=== PATIENT | male | born 1990 | race Caucasian/White ===

== ENCOUNTER 2023-12-03 08:50 | Observation (INO) ==
--- NOTE | 2023-12-02 12:35 | Anesthesiology Consultation ---
Date of Service December 02, 2023 Assessment & Plan (1) Encounter for pre-operative examination: Chart Review Chart Review: Acceptable Risk for Surgery and Patient NOT seen in Pre Admission Testing Infectious Disease screening: Per PAT nursing assessment on 12/02/23, No known infectious disease contacts in past 10 days or current infectious disease symptoms. No recent travel outside the country. *Per RN phone interview 12/02/23, pt states that earlier in the day on 12/02/23, he was lying on the couch about 1 hour after waking up and he experienced '2-3 seconds of heart racing, felt short of breath at that time. patient took long deep breaths and it quit. no other symptoms.' Patient then went to pre op appointment with Dr Sandy this AM, vitals were checked and were normal. no other issues at this time. Pt denies any previous similar sx. Consults Requested none ASA ASA1 Proposed Anesthesia Anesthesia Type: General Regional Regional Laterality: Right Site: Popliteal Risk / Benefits Reviewed With: PT / POA / Parent / Guardian, Accepts Plan and Informed Consent Obtained History Surgery Operation Date: 12/03/23 10:40 Proposed Procedures p Right Achilles Tendon Repair - Timbo Ashford MD Height/Weight Height: 6 ft Weight: 81.647 kg Allergies Allergy/AdvReac Type Severity Reaction Status Date / Time bee venom protein (honey bee) Allergy Severe Anaphylaxis Verified 12/03/23 09:16 Medications Home Medications Medication Instructions Recorded Confirmed Last Taken ascorbic acid (vitamin C) 500 mg 500 mg PO 3XWK 12/02/23 12/03/23 12/01/23 08:00 tablet (Vitamin C) epinephrine 0.3 mg/0.3 mL 0.3 mg IM Q4H PRN Anaphylaxis 12/02/23 12/03/23 Unknown injection, auto-injector Active Medications Generic Name Dose Route Start Last Admin Trade Name Freq PRN Reason Stop Dose Admin Lactated Ringer's 1,000 mls @ 15 mls/hr 12/03/23 06:00 12/03/23 09:32 Lr IV 12/04/23 05:59 15 mls/hr .Q24H LIDYA Administration Lactated Ringer's 1,000 mls @ 15 mls/hr 12/03/23 06:00 12/03/23 09:33 Lr IV 12/04/23 05:59 Not Given .Q24H LIDYA NPO Date Last Intake of Fluids: 12/03/23 Time Last Intake of Fluids: 00:00 Date Last Intake of Solids: 12/03/23 Time Last Intake of Solids: 00:00 Past Medical History Medical History Allergy to bee sting History of COVID-19 2020 -> home test positive, cough-fever. resolved. No known health problems Exercise / Class Metabolic Activity 1 > 8 Run/Swim/Ski/Tennis Past Family History Family History Father Mesothelioma, Onset Age: 65 Other No family history of adverse response to anesthesia Past Surgical History Surgical History H/O wisdom tooth extraction sedation Past Anesthesia History No Hx of Anesthesia Complications and No Family Hx of Anesthesia Complications History of PONV No Hx of PONV and No Hx of Motion Sickness Social History Smoking Status: Never smoker Do You Dip or Chew Tobacco: No Hx Alcohol Use: Yes alcohol intake frequency: a few times a month Hx Substance Use: No substance use type: does not use Physical Exam Vital Signs Last Vital Signs Temp 97.9 F 12/03/23 09:18 Pulse 56 L 12/03/23 09:18 Resp 20 12/03/23 09:18 BP 138/85 12/03/23 09:18 Pulse Ox 99 12/03/23 09:18 O2 Del Method Room Air 12/03/23 09:18 ENMT Mouth: no dentition abnormality Thyromental Distance: > or= 3.5 Finger Breadths Mallampati Class: II Neck normal visual inspection Respiratory normal respiratory effort Auscultation: lungs clear to auscultation bilaterally Cardiovascular Rate/Rhythm: regular rate and regular rhythm
--- NOTE | 2023-12-03 06:26 | History & Physical Bridge Note ---
Date of Service December 03, 2023 History & Physical Bridge Note I have examined the patient, reviewed the History & Physical and in the interval since the performance of the History & Physical I have noted the following changes of clinical significance: consent and site verified.no changes noted
[~2023-12-03 08:50] MED LIST: ROPIVACAINE 0.5% 5 MG/ML 30 ML VIAL ONE; cefTRIAXone SODIUM 2,000 MG/50 ML BAG IV ONE
[2023-12-03] MEDS: LR 15ML/HR IV SCH (09:32)
[2023-12-03] MEDS: LACTATED RINGER'S 1,000 ML IV SCH (09:33)
[2023-12-03] MEDS ORDERED: MIDAZOLAM HCL 1 MG/ML 2ML VIAL ONE (09:44)
[2023-12-03] MEDS ORDERED: DEXAMETHASONE SOD INJ 4 MG/ML VIAL ONE (09:44)
[2023-12-03] MEDS ORDERED: PROPOFOL IV EMULSION 10 MG/ML 20 ML VIAL IV ONE (09:44)
[2023-12-03] MEDS ORDERED: LIDOCAINE 2% 2 ML VIAL/AMP(20MG/ML) INFIL ONE (09:44)
[2023-12-03] MEDS ORDERED: ONDANSETRON INJ 2 MG/ML 2 ML VIAL ONE (09:44)
[2023-12-03] MEDS ORDERED: ROCURONIUM BROMIDE 10 MG/ML 5 ML VIAL IV ONE ×5 (09:45)
[2023-12-03] MEDS ORDERED: fentaNYL citrate PF 100 MCG/2 ML VIAL ONE ×2 (09:45→11:25)
[2023-12-03] MEDS ORDERED: ePHEDrine sulfate 50 MG/ML AMP IV PRN (10:22)
[2023-12-03] MEDS ORDERED: ATROPINE SULFATE 0.1 MG/ML 10ML SYR IV PRN (10:22)
[2023-12-03] MEDS ORDERED: ONDANSETRON INJ 2 MG/ML 2 ML VIAL IV PRN (10:22)
[2023-12-03] MEDS: ceFAZolin 2000MG 2,000 MG/15 ML SYR IV SCH (11:05)
[2023-12-03] MEDS ORDERED: KETOROLAC 30 MG/ML VIAL ONE (11:19)
[2023-12-03] MEDS: BUPIVACAINE 0.5 % 5 MG/1 ML MPF 30ML VIAL ONE (11:33)
[2023-12-03] MEDS ORDERED: SUGAMMADEX SODIUM 200 MG/2 ML VIAL IV ONE (11:47)
--- NOTE | 2023-12-03 12:12 | Post Operative Brief Note ---
Immediate Post Op Note Date of Surgery December 03, 2023 Pre & Post Diagnosis Operation Date: 12/03/23 10:40 Pre-Op Diagnosis: Right Achilles Tendon Rupture Post-Op Diagnosis: Right Achilles Tendon Rupture I identified the patient and participated in the time-out.: Yes Procedure Operation Date: 12/03/23 10:40 Actual Procedures p Right Achilles Tendon Repair(Right) - Timbo Ashford MD Surgeon Timbo Ashford MD Spray Booth Operator SUDEEP/Steve Estimated Blood Loss 0 Findings Consistent with Post-Op Diagnosis Complete rupture with intact plantaris Fluids See anesthesia report
--- NOTE | 2023-12-03 12:16 | Operative Report ---
Post Operative Report Pre & Post Diagnosis Operation Date: 12/03/23 10:40 Pre-Op Diagnosis: Right Achilles Tendon Rupture Post-Op Diagnosis: Right Achilles Tendon Rupture I identified the patient and participated in the time-out.: Yes Procedure Operation Date: 12/03/23 10:40 Actual Procedures p Right Achilles Tendon Repair(Right) - Timbo Ashford MD Surgeon Timbo Ashford MD Automatic Engraver SUDEEP/Steve Estimated Blood Loss 0 Findings Consistent with Post-Op Diagnosis Complete rupture with intact plantaris interstitial lengthening of tendon Specimens None Drains None Complications None Indications Complete rupture young individual went over options flexes potential for recovery better with surgery done without surgery risk and consequences identified Description of Procedure After the patient was appropriate notified site verified consent verified antibiotics confirmed to be given he was carefully placed in the prone position tourniquet placed on his thigh and the right lower extremity prepped and draped use routine fashion. There was about a centimeter and a half defect noted. Once the tourniquet was inflated total tourniquet time was 33 minutes. A posterior medial incision was made. Full-thickness flaps raised peritenon open and preserved. Tendon defect identified plantaris intact identified. The plantaris was dissected proximally and then released later used for Pulvertaft weave. The tendon was then trimmed appropriately for the interstitial lengthening and then the tendon repaired with #2 Vicryl with 3 sutures of this. This was done with a baseball stitch and then a box stitch with some interlocking. This allowed the tendon to be repaired end and with no major bulk. Once this was done the parent peritenon was then closed over the top of the tendon repair with a 4-0 Vicryl and tubularized things very nicely. Wound was then irrigated 1 final time and then closed with 2-0 plain for the subcutaneous layer and 3-0 nylon horizontal mattress for skin Dermabond was applied Xeroform light dressing and an anterior shell splint. EBL was 0 cc crystalloid per anesthesia DVT prophylaxis with Eliquis for 1 week then followed by aspirin. He will be nonweightbearing for the next 2 weeks. He will be kept immobile for the next 2 weeks. I attest to the content of the Intraoperative Record and any orders documented therein. Any exceptions are noted below.
[2023-12-03] MEDS ORDERED: GLYCOPYRROLATE 0.2 MG/ML VIAL ONE (12:21)
--- NOTE | 2023-12-03 12:22 | Operative Report ---
Post Operative Report Pre & Post Diagnosis Operation Date: 12/03/23 10:40 Pre-Op Diagnosis: Right Achilles Tendon Rupture Post-Op Diagnosis: Right Achilles Tendon Rupture I identified the patient and participated in the time-out.: Yes Procedure Operation Date: 12/03/23 10:40 Actual Procedures p Right Achilles Tendon Repair(Right) - Timbo Ashford MD Surgeon DAPHNIE Ashford MD Molding Machine Operator Helper SUDEEP/Steve MENEZES Estimated Blood Loss 0 Findings Consistent with Post-Op Diagnosis see operative report Specimens none Drains none Complications none Disposition Accompanied Patient To Recovery: Yes Indications This 33 year old male presented to the office complaints of right ankle weakness and discomfort after injuring himself while playing Frisbee. He elected to proceed with surgical intervention after being educated about potential risks and outcomes. Preoperative imaging was obtained. Description of Procedure The patient was administered a regional block and then taken to the operating room where he was given general anesthesia. He was prepped and draped in the usual sterile fashion. Please see Dr. Ashford's operative report for specifics of the procedure. I was present for the entire case from initial patient positioning through final wound closure. Assistance was provided in tissue retraction, hemostasis, final wound closure, and postsurgical splinting. The patient was taken to the recovery room in satisfactory condition. I attest to the content of the Intraoperative Record and any orders documented therein. Any exceptions are noted below.
--- NOTE | 2023-12-03 12:25 | Operative Report ---
Post Operative Report Pre & Post Diagnosis Operation Date: 12/03/23 10:40 Pre-Op Diagnosis: Right Achilles Tendon Rupture Post-Op Diagnosis: Right Achilles Tendon Rupture I identified the patient and participated in the time-out.: Yes Procedure Operation Date: 12/03/23 10:40 Actual Procedures p Right Achilles Tendon Repair(Right) - Timbo Ashford MD Surgeon Timbo Ashford MD Telecommunications Network Planner SUDEEP/Steve MENEZES Estimated Blood Loss 0 Findings Consistent with Post-Op Diagnosis Same as postoperative diagnosis. Specimens None Description of Procedure Please see detailed operative note. I attest to the content of the Intraoperative Record and any orders documented therein. Any exceptions are noted below.
[2023-12-03] MEDS: fentaNYL citrate PF 100 MCG/2 ML VIAL IV PRN (13:27)
--- NOTE | 2023-12-03 14:05 | History & Physical Report ---
Date of Service December 03, 2023 Assessment & Plan (1) Postoperative hypoxemia: Plan: Post-Op Hypoxia, suspected negative pressure pulmonary edema - +cough with pink/blood tinged sputum - On 3L NC - SpO2 goal 90-94%%, supplemental oxygen as needed - Maintain upright sitting position. If worsening or progressive hypoxia, --> CPAP 5 cmH2O - Does not appear clinically hypervolemic, no indication for diuretics at this time. Follow with serial exams. - Steroids not currently indicated - Patient is clinically improving on reassessment, and is weaning to room air. Patient denies preceding fever, chills, cough, sinus congestion or other symptoms to suggest infectious etiology. If not progressing/resolved in AM, repeat chest x-ray and add viral URI testing (2) Rupture Achilles tendon: Plan: R Achilles Rupture - s/p repair - Eliquis DVT ppx starting AM 12/04/23. Re-evaluate by hospitalist team prior to first dose due to mild hemoptysis in PACU - Activity, abx ppx per surgical team Offloading of the right heel at all times, when laying in bed must have pillow underneath his right Achilles/heel at all times Plan DVT PPx: pharmacoppx starting 12/03. Diet: Reg Dispo: M/T, downgrade to M/S if stable/O2 requirements improving Code; Full History of Present Illness Primary Care Provider: Doug Ruiz MD Gene is a 33-year-old male with past medical history of bee venom anaphylaxis who is otherwise healthy who presented for operative repair of a right Achilles tendon rupture sustained while playing sports. Underwent right Achilles tendon repair 12/03/2023. Patient is recommended for overnight observation and monitoring due to hypoxia suspected to be due to negative pressure pulmonary edema. No aspiration event. Seen at the bedside in the PACU. He reports he remembers trying to take a deep breath against resistance when waking up. Since then he has had a cough with light pink sputum production. Currently has no chest pain, chest pressure, lightheadedness, dizziness. Does not feel short of breath on oxygen. He denies any history of lung problems in the past. No history of asthma. No cardiac disease. No family history of lung disease. No history of blood clots, no history of bleeding. He reports he is very active and was playing [employer]guanjia when he tore his right Achilles which was repaired today. He is not short of breath at bedside. He reports he does not drink alcohol regularly, no tobacco use. 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 No additional questions or concerns at bedside. Full code. Allergies Allergy/AdvReac Type Severity Reaction Status Date / Time bee venom protein (honey bee) Allergy Severe Anaphylaxis Verified 12/03/23 09:16 Home Medications Medication Instructions Recorded Confirmed Type ascorbic acid (vitamin C) 500 mg 500 mg PO 3XWK 12/02/23 12/03/23 History tablet (Vitamin C) epinephrine 0.3 mg/0.3 mL 0.3 mg IM Q4H PRN Anaphylaxis 12/02/23 12/03/23 History injection, auto-injector Past Med/Surg History Problem List (Updated 12/03/23 @ 18:52 by Jorgito Jacob MD) Rupture Achilles tendon Postoperative hypoxemia Encounter for pre-operative examination Allergic reaction (Acute) 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 resolved. No known health problems Surgical History H/O wisdom tooth extraction sedation Family History Father Mesothelioma, Onset Age: 65 Other No family history of adverse response to anesthesia Social History Smoking Status: Never smoker Second Hand Exposure: No; Do You Dip or Chew Tobacco: No; Tobacco Cessation Education Requested by Patient: No Hx Alcohol Use: Yes Hx Substance Use: No Preferred Language: Bahamian Communication Ability: Effective Associate Civil Engineer Required: No Beliefs That Will Affect Care: None Current Living Situation: Spouse and Family Other Information That Helps Us Care for You: No Feels Safe at Home: Yes Safety Concerns: Feels Safe At This Time Assistive Devices: Brace/Splint/Immobilizer, Contacts, Crutches and Glasses Physical Exam Physical Exam: General: A&Ox3. NAD. Cooperative. On 3L NC. HEENT: Atraumatic, normocephalic. vision/hearing intadt Pulm: Diffusely coarse, -wheezes, Symmetrical chest rise. No increased work of breathing. No respiratory distress. Cardiac: RRR, -mrg. Radial pulses intact and symmetrical. Abdominal: Nontender, nondistended, soft. BS present. Ext: Right lower extremity in postoperative wrap. Remains numb following popliteal block. Results & Data Results & Data Vital Signs (Past 12 Hours) Vital Signs Temp Pulse Pulse Resp BP Pulse Ox O2 Del Method 12/03/23 13:30 71 14 114/77 85 L Room Air 12/03/23 13:20 97 H 13 119/79 88 L Room Air 12/03/23 13:10 79 15 129/79 93 Nasal Cannula 12/03/23 13:00 81 19 131/88 92 Nasal Cannula 12/03/23 12:50 93 H 24 124/91 95 Nasal Cannula 12/03/23 12:40 99 H 13 113/55 L 91 Non-rebreather 12/03/23 12:30 72 14 107/64 94 Non-rebreather 12/03/23 12:24 36.1 C L 75 11 L 109/67 66 L Oxymask 12/03/23 09:18 36.6 C 56 L 20 138/85 99 Room Air O2 Flow Rate 12/03/23 13:30 12/03/23 13:20 12/03/23 13:10 4 12/03/23 13:00 4 12/03/23 12:50 4 12/03/23 12:40 15 12/03/23 12:30 15 12/03/23 12:24 6 12/03/23 09:18 PG Care Time/CCT Total # of Minutes Spent Total Time Spent with Patient: Total time spent is greater than 50% in coordination of care (as documented) at patient's floor/unit and/or counseling patient: Coding Level of Care Code 17028 INT INP/OBS CARE 2/55MIN Diagnoses Postoperative hypoxemia R09.02; Z98.890 Rupture Achilles tendon S86.019A
--- NOTE | 2023-12-03 14:09 | XRay Report ---
XR chest 1V portable CLINICAL HISTORY: hypoxia TECHNIQUE: Single frontal radiograph of the chest was obtained. Comparison: None available at the time of this dictation. FINDINGS: No lines and tubes are seen. The cardiomediastinal silhouette is normal. Peribronchial thickening is seen. No evidence of pleural effusion or pneumothorax. IMPRESSION: Peribronchial thickening is seen compatible with infectious/inflammatory airways disease or viral pne umonia. No giovanny consolidation is seen. ACT 112: Negative or not required by law. Electronically signed by: Jeremy Merrill M.D. 12/03/2023 2:08 PM
--- OUTSIDE RECORDS SUMMARY | 2023-12-03 14:10 | External Medical Summary | Summary of Care ---
Author Name Unknown Organization [facility] Address [address] [place] [address] Phone [phone] Care Team Providers Care Restaurant Service Manager Name Role Phone Unavailable Primary Care Provider Unavailabl e Encounter Details Date Type Department Care Team (Late st Contact Info) Description 11/30/2023 Patient Reported Data Patient Survey Ortho [facility] Allergies Active Allergy Reactions Criticality Noted Date Comments Bee Venom 11/27/2023 documented as of this encounter (statuses as of 11/30/2023) Medications No known medicationsdocumented as of this encounter (statuses as of 11/30/2023) Active Problems Problem Noted Date Diagnosed Date NONE 05/03/2010 documented as of this encounter (statuses as of 11/30/2023) Immunizations Name Administration Dates Next Due TDAP, Age 7 and older, IM (Adacel) 03/19/2009 documented as of this encounter Social History Tobacco Use Types Packs/Day Years Used Date Smoking Tobacco: Never Smokeless Tobacco: Never Alcohol Use Standard Drinks/Week Comments Yes 0 (1 standard drink = 0.6 oz pure alcohol) occasionally - twice a month - 4/time Utilities Answer Date Recorded Do you have trouble paying y our heating, water, or electric bill? (Adult - for ages 18 years and over) Not on file 11/04/2023 Is your family able to pay t he heat, water, or electric bill? (Household - for ages 0-17 years) Not on file 11/04/2023 Does your family have access to good internet? (Household - for ages 0-17 years) Not on file 11/04/2023 Social Connections Answer Date Recorded How often do you feel lonely or isolated from those around you? (Adult - for ages 18 years and over) Not on file 11/04/2023 Sex and Gender Information Value Date Recorded Sex Assigned at Not on file Gender Identity Not on file Sexual Orientation Not on file Job Start Date Occupation Industry Not on file Not on file Not on file documented as of this encounter Plan of Treatment Upcoming Encounters Date Type Department Care Team (Late st Contact Info) Description 12/01/2023 11:45 AM EDT Office Visit Orthopaedics [facility] [address] [place] [id number] Bridger Worrell MD [address] [place] [phone] Health Maintenance Due Date Last Done Comments Depression Screening 2002 HIV Screening 2005 Hepatitis C Screening 2008 COVID-19 Vaccine ( season) 2023 10/31/2020, 10/24/2020, 10/10/2020, Additional history exists Influenza Vaccine (FLU shot) (#1) 2024 DTaP,Tdap,and Td Vaccines (3 - Td or Tdap) 07/07/2029 07/07/2019, 03/19/2009 Hepatitis B Vaccine Completed 07/09/1994, 11/06/1993, 09/20/1993 HPV (Gardasil) Vaccine Aged Out No lo nger eligible based on patient's age to complete this topic MENINGOCOCCAL (MENACTRA/MENVEO) Aged Out No longer eligible based on patient's age to complete this topic Pneumococcal Vaccine: Pediatrics (0 to 5 Years) and At-Risk Patients (6 to 64 Years) Aged Out No longer eligible based on patient's age to complete this topic documented as of this encounter Medical Devices Not on filedocumented as of this encounter
--- OUTSIDE RECORDS SUMMARY | 2023-12-03 14:10 | External Medical Summary | Summary of Care ---
Author Name Unknown Organization [facility] Address [address] [place] [address] Phone [phone] Care Team Providers Care Cylinder Machine Operator Name Role Phone Unavailable Primary Care Provider [...] 12/01/2023 11:45 AM EDT Office Visit Orthopaedics [facility] [address] [place] [address] Bridger Worrell MD [address] [place] [phone] Health Maintenance Due Date Last Done Comments [...]
--- OUTSIDE RECORDS SUMMARY | 2023-12-03 14:10 | External Medical Summary | Summary of Care ---
Author Name Unknown Organization [facility] Address [address] [place] [address] Phone [phone] Care Team Providers Care Director Clinical Data Name Role Phone Unavailable Primary Care Provider [...] 12/01/2023 11:45 AM EDT Office Visit [facility] [address] [place] [address] Bridger Worrell MD [address] [place] [phone] Health Maintenance Due Date Last Done Comments [...]
--- OUTSIDE RECORDS SUMMARY | 2023-12-03 14:10 | External Medical Summary | Summary of Care ---
Author Name Unknown Organization [facility] Address [address] [place] [address] Phone [phone] Care Team Providers Care Vascular Ultrasound Technician Name Role Phone Unavailable Primary Care Provider Unavailabl e Encounter Details Date Type Department Care Team (Late st Contact Info) Description 12/02/2023 Telephone Orthopaedics [facility] [address] [place] [address] Bridger Worrell MD [address] [place] [phone] Allergies Active Allergy Reactions Criticality Noted Date Comments Bee Venom 11/27/2023 documented as of this encounter (statuses as of 12/02/2023) Medications No known medicationsdocumented as of this encounter (statuses as of 12/02/2023) Active Problems Problem Noted Date Diagnosed Date Achilles rupture, right 12/01/2023 NONE 05/03/2010 documented as of this encounter (statuses as of 12/02/2023) Immunizations Name Administration Dates Next Due TDAP, [...] on file documented as of this encounter Miscellaneous Notes * Telephone Encounter - Susana Mahajan OSA - 12/02/2023 9:32 AM EDT Attempted to call patient back to advise to disregard last message that I left and that surgery is still scheduled for 12/08 at . Left message. * Telephone Encounter - Susana Mahajan OSA - 12/02/2023 9:23 AM EDT I attempted to call patient to advise to him that his surgery may NOT be on 12/08 at . Case was added to the OR board and I called the patient to advise that we were able to do his surgery at on 12/08 but then later told we were unable to. I attempted to call patient back to advise that we are still working on a surgery date for him. Left message for call back. documented in this encounter Plan of Treatment Upcoming Encounters Date Type Department Care Team (Latest Contact Info) Description 12/09/2023 1:39 PM EDT Hospital Encounter [facility] Operating Room [facility] [address] [place] [phone] Bridger Worrell MD [address] [place] [phone] 12/09/2023 1:39 PM EDT - 12/09/2023 3:33 PM EDT Surgery OR [facility], Operating Room [facility] [address] [place] [phone] Bridger Worrell MD [address] [place] [phone] REPAIR ACHILLES TENDON 12/15/2023 9:30 AM EDT Office Visit Orthopaedics [facility] [address] [place] [phone] Bridger Worrell MD [address] [place] [phone] Scheduled Procedures Name Priority Associated Diagnoses Date/Ti me REPAIR ACHILLES TENDON Rupture of right Achilles tendon, initial encounter 12/09/2023 1:39 PM EDT Health Maintenance Due Date Last Done Comments [...]
--- OUTSIDE RECORDS SUMMARY | 2023-12-03 14:10 | External Medical Summary | Summary of Care ---
Author Name Unknown Organization [facility] Address [address] [place] [address] Phone [phone] Care Team Providers Care Advisory Application Developer Name Role Phone Unavailable Primary Care Provider Unavailabl e Reason for Visit * Reason Comments NEW PATIENT Right Achilles Encounter Details Date Type Department Care Team (Late st Contact Info) Description 12/01/2023 11:45 AM EDT Office Visit Orthopaedics [facility] [address] [place] [address] Bridger Worrell MD [address] [place] [phone] Rupture of right Achilles tendon, initial encounter* Allergies Active Allergy Reactions Criticality Noted Date Comments Bee Venom 11/27/2023 documented as of this encounter (statuses as of 12/01/2023) Medications No known medicationsdocumented as of this encounter (statuses as of 12/01/2023) Active Problems Problem Noted Date Diagnosed Date Achilles rupture, right 12/01/2023 NONE 05/03/2010 documented as of this encounter (statuses as of 12/01/2023) Immunizations Name Administration Dates Next Due TDAP, [...] on file documented as of this encounter Last Filed Vital Signs Vital Sign Reading Time Taken Comments Blood Pressure - - Pulse - - Temperature - - Respiratory Rate - - Oxygen Saturation - - Inhaled Oxygen Concentration - - Weight 81.6 kg (180 lb) 12/01/2023 12:14 PM EDT Height 182.9 cm (6') 12/01/2023 12:14 PM EDT Body Mass Index 24.41 12/01/2023 12:14 PM EDT documented in this encounter Patient Instructions * Patient Instructions* Bridger Worrell MD - 12/01/2023 12:01 PM EDT Encounter Diagnoses Name Primary? Rupture of right Achilles tendon, initial encounter Yes [email or web address] Conservative management of serial casting followed by physical therapy Risk of stiffness, DVT Operative management of primary Achilles tendon repair Risk of wound complication, stiffness, DVT Recovery is 3-6 months returned to sports documented in this encounter Progress Notes * Bridger Worrell MD - 12/01/2023 11:59 AM EDT ORTHOPAEDIC SURGERY - Clinic Note SUBJECTIVE: Montrell Han is a 33 year old male. Chief Complaint Patient presents with NEW PATIENT Right Achilles ASSESSMENT: S86.011A Rupture of right Achilles tendon, initial encounter (primary encounter diagnosis) PLAN: We discussed diagnosis treatment options with him and his . We discussed non operative versus operative management with the patient today. Patient understands the risks and benefits of surgery versus non surgery Patient would like to start with casting today. If he changes his mind about surgical management we would recommend that he undergo surgery next Friday which is our next operative day. There are no Patient Instructions on file for this visit. Follow Up: Return Follow up in 2 weeks, for Clinic Visit. | For: Clinic Visit HPI: This is a 33 year old male seen for evaluation of his right Achilles tendon. Patient was seen in urgent care and underwent a MRI scan. He states he was playing [employer] when he felt a pop and heard a pop in his right Achilles. Denies any previous injury. Interval history - Nursing Notes: Yumiko Ratliff LPN 12/01/23 1135 Signed Ref by Lucinda Mathew PA-C for right Achilles while playing [employer]. DOI 11/26/23. MRI 11/27/23. Presents wearing tall cam boot. Pt employed in [employer]. Yumiko Lovelace LPN Review of Systems: Constitutional ROS: No fevers, sweats, or chills Cardiovascular ROS: No chest pain Gastrointestinal ROS: No abdominal pain Musculoskeletal/Extremities ROS: Chief Complaint Patient presents with NEW PATIENT Right Achilles Neurologic ROS: Denies numbness and tingling Review of patient's allergies indicates: Allergen Reactions Bee Venom No current outpatient medications on file. No current facility-administered medications for this visit. Patient Active Problem List Diagnosis NONE No past medical history on file. No past surgical history on file. Social History Tobacco Use Smoking status: Never Smokeless tobacco: Never Substance Use Topics Alcohol use: Yes Comment: occasionally - twice a month - 4/time Drug use: No Family history: Noncontributory OBJECTIVE: Diagnostic Testing: We reviewed the x-rays of the right ankle from 11/27/2023. Those x-rays do not show any evidence fracture. No dislocation. No loose bodies. No degenerative changes. Vital Signs: There were no vitals taken for this visit. Physical Exam: Right Ankle Exam Tenderness Right ankle tenderness location: Tender over the Achilles tendon. Swelling: moderate Range of Motion Dorsiflexion: abnormal Plantar flexion: normal Eversion: normal Inversion: normal Muscle Strength Dorsiflexion: 5/5 Plantar flexion: 4/5 Anterior tibial: 5/5 Posterior tibial: 5/5 Gastrocsoleus: 3/5 Peroneal muscle: 5/5 Tests Anterior drawer: negative Varus tilt: negative Other Erythema: absent Scars: absent Sensation: normal Pulse: present Left Ankle Exam Left ankle exam is normal. This chart was completed in part utilizing [employer] Speech Voice Recognition Software. Grammatical errors, random word insertions, pronoun errors, and incomplete sentences are an occasional consequence of this system due to software limitations, ambient noise, and hardware issues. Any formal questions or concerns about the content, text, or information contained within the body of this dictation should be directly addressed to the provider for clarification. Bridger Worrell MD Orthopaedics [facility] [address] [facility] [place] [address] Orthopedic Sports Medicine Surgery 12/01/2023 documented in this encounter Nursing Notes * Yumiko Ratliff LPN - 12/01/2023 11:30 AM EDT Ref by Lucinda Mathew PA-C for right Achilles while playing [employer]. DOI 11/26/23. MRI 11/27/23. Presents wearing tall cam boot. Pt employed in [employer]. Yumiko Lovelace LPN documented in this encounter Plan of Treatment Upcoming Encounters Date Type Department Care Team (Late st Contact Info) Description 12/15/2023 9:30 AM EDT Office Visit Orthopaedics [facility] [address] [facility] [place] [address] Bridger Worrell MD [address] [facility] [place] [phone] Scheduled Orders Name Type Priority Associated Diagnoses Orde r Schedule APPLY SHORT LEG CAST Procedures Routine Rupture of right Achilles tendon, initial encounter Ordered: 12/01/2023 SHORT LEG CAST SUPPLY,ADULT,FBGLS Procedures Routine Rupture of right Achilles tendon, initial encounter Ordered: 12/01/2023 Scheduled Procedures Name Priority Associated Diagnoses Date/Ti me REPAIR ACHILLES TENDON Rupture of right Achilles tendon, initial encounter Health Maintenance Due Date Last Done Comments [...] Not on filedocumented as of this encounter Visit Diagnoses Diagnosis Rupture of right Achilles tendon, initial encounter- Primary documented in this encounter"
--- OUTSIDE RECORDS SUMMARY | 2023-12-03 14:10 | External Medical Summary | Summary of Care ---
Author Name Unknown Organization [facility] Address [address] [place] [address] Phone [phone] Care Team Providers Care Party Host/Hostess Name Role Phone Unavailable Primary Care Provider [...] 12/01/2023 11:45 AM EDT Office Visit Orthopaedics [facility] [address] [place] [address] Bridger Worrell MD [address] [place] [phone] Health Maintenance Due Date Last Done Comments [...]
--- OUTSIDE RECORDS SUMMARY | 2023-12-03 14:10 | External Medical Summary | Summary of Care ---
Author Name Unknown Organization [facility] Address [address] [place] [address] Phone [phone] Care Team Providers Care Director Of Corporate Sponsorships Name Role Phone Unavailable Primary Care Provider [...] AM EDT Office Visit [facility]opaedics [facility] [address] [place] [address] Bridger Worrell MD [address] [place] [phone] Health Maintenance Due Date Last Done Comments [...]
--- OUTSIDE RECORDS SUMMARY | 2023-12-03 14:11 | External Medical Summary | Continuity of Care Document ---
Author Name Unknown Organization [facility] [address] [facility] Address [address] [id number] Care Team Providers Care Master Esthetician Name Role Phone Marcela Reynoso Primary Care Physician [phone] Encounter [facility] [phone] Date(s): 09/10/23 - 09/10/23 [facility] [address] [phone] Encounter Diagnosis Compound nevus of multiple sites of trunk(Discharge Diagnosis) - 09/10/23 Discharge Disposition: Home or Self Care Attending Physician: MD Horn Thomas A Referring Physician: MD Ruiz Ravishankar E Allergies, Adverse Reactions, Alerts No Known Medication Allergies Substance Reaction Severity Status Bee stings swelling of inner ea r loss of sight Active Assessment and Plan Extracted from: Title:Clinical Document Author:MD [facility] Date:09/10/23 OUTPATIENT NOTE Name: JOSE CARROLL Patient Number:[id number] : 1990 Date of Service: 09/10/2023 _ Jose Carroll presents for evaluation of pigmented nevi. He notes no prior history of excisions and no pigmented nevi that he is particularly concerned about. No family history of skin cancer. Past medical family social history review of systems medications allergies as noted on the chart. Patient is in good health. He is a osage of [place] and has lived in [place] for the past 16 years. He is involved with the [employer] ministry. He has 2 children aged 2 and 4. Examination reveals pleasant well-nourished white male type II skin was alert and oriented x 3 with normal mood and affect. Examination of the scalp, head, neck, back, chest, arms, hands, fingers, abdominal area reveals a compound nevus left occipital scalp 5 mm which is occasionally irritated with haircutting, but could be removed if bothersome to the patient. He will let us know regarding this. There are multiple compound nevi present on the back, chest, and abdomen none of which appear atypical. The largest lesion is 10 mm x 6 mm in greatest dimension, but has not changed over time. Lentigines are noted on the extensor forearms and few scattered small compound nevi are noted as well. Clinical impression is that of patient with pigmented nevi. None appear sufficiently atypical to biopsy. He should continue to use sunscreen and monitor for any increase in size or intensity of pigmentation of individual lesions or any new lesions that may arrive looking different than others. He will return as needed for reevaluation. Immunizations Given and Recorded Vaccine Date Status Refusal Reason SARS-CoV-2 (COVID-19) mRNA BNT-162b2 vax 10/24/20 Recorded SARS-CoV-2 (COVID-19) mRNA BNT-162b2 vax 09/27/20 Recorded tetanus/diphtheria/pertuss, acel (Tdap) 07/07/19 G iven tetanus/diphtheria/pertuss, acel (Tdap) 1 03/19/09 Recorded yellow fever vaccine 2 11/08/14 Given hepatitis A adult vaccine 11/08/14 Given influenza virus vaccine, H1N1 06/05/09 Recorded varicella virus vaccine 07/31/07 Recorded varicella virus vaccine 12/12/94 Recorded measles/mumps/rubella virus vaccine 03/07/97 Recor ded measles/mumps/rubella virus vaccine 08/10/91 Recor ded hepatitis B pediatric vaccine 07/09/94 Recorded hepatitis B pediatric vaccine 11/06/93 Recorded hepatitis B pediatric vaccine 09/20/93 Recorded 1Result Comment: 2021-01-12: Historical information-source unspecified 2Result Comment: Reconstituded with Sodium Chloride [facility] [place], [place] San[employer] Paste[employer] Lot # [id number] Exp 06/05 Medications EpiPen 2-Tobias 0.3 mg injectable kit Start: 02/21/23 9:53:00 EDT, 0.3 mg =, IM, ONCE, Disp# 2 packet, Refills: 1, may repeat if necessary, Pharmacy: [id number] Start Date: 02/21/23 Status: Ordered Mental Status 09/10/23 Barriers to Learning one year None evide nt Mandatory Health Literacy Documentation Yes Health Literacy Communication Barriers N ever Primary Language Kiswahili Problem List Condition Confirmation Course Effective Dates Status Health St atus Informant 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 Counseling for travel Confirmed Active Knee pain, right Confirmed Active Diagnosis Diagnosis Type Effective Dates Health Status Cl inical Service Informant Compound nevus of multiple sites of trunk Discharge Diagnosis 09/10/23 Procedures Procedure Date Related Diagnosis Body Site Status None Completed Social History Social History Type Response Smoking Status Never smoked cigaret soumya Sex Male Outpatient Note * MD Kory, Davy Smith: PERFORM, MODIFY Event Display: .Outpt Note Authored Date: [id number] OUTPATIENT NOTE Name: JOSE CARROLL Patient Number:[id number] : 1990 Date of Service: 09/10/2023 _ Jose Carroll presents for evaluation of pigmented nevi. He notes no prior history of excisions andno pigmented nevi that he is particularly concerned about. No family history of skin cancer. Past medical family social history review of systems medications allergies as noted on the chart. Patient is in good health. He is a os[place] of [place] and has lived in [place] for the past 16 years. He is involved with the [employer] ministry. He has 2 children aged 2 and 4. Examination reveals pleasant well-nourished white male type II skin was alert and oriented x 3 withnormal mood and affect. Examination of the scalp, head, neck, back, chest, arms, hands, fingers, abdominal area reveals a compound nevus left occipital scalp 5 mm which is occasionally irritated withhaircutting, but could be removed if bothersome to the patient. He will let us know regarding this.There are multiple compound nevi present on the back, chest, and abdomen none of which appear atypical. The largest lesion is 10 mm x 6 mm in greatest dimension, but has not changed over time. Lentigines are noted on the extensor forearms and few scattered small compound nevi are noted as well. Clinical impression is that of patient with pigmented nevi. None appear sufficiently atypical to biopsy. He should continue to use sunscreen and monitor for any increase in size or intensity of pigmentation of individual lesions or any new lesions that may arrive looking different than others. He will return as needed for reevaluation. Electronic Signature on File CC: Chaya Ruiz MD [address] [id number] Electronically Reviewed/Signed by: Davy Horn MD Author Signature Dt/Tm:09/10/2023 09:47 AM Department of Dermatology [facility] Patient Care team information Care Team Personnel Name: LYNN Reynoso Shari A Position: Nurse Pract - Family Med Member Role: Primary Care Provider Address: Address: [address] [place] [id number] Care Team Related Persons Name: JOSE CARROLL Address: home [address] [place] [address] [place], [place] [id number]
--- OUTSIDE RECORDS SUMMARY | 2023-12-03 14:11 | External Medical Summary | Summary of Care ---
Author Name Unknown Organization [facility] Address [address] [place] [address] Phone [phone] Care Team Providers Care Lace Cutter Name Role Phone Unavailable Primary Care Provider [...] 12/01/2023 11:45 AM EDT Office Visit Orthopaedics [facility] [address] [place] [address] Bridger Worrell MD [address] [place] [phone] Health Maintenance Due Date Last Done Comments [...]
--- OUTSIDE RECORDS SUMMARY | 2023-12-03 14:11 | External Medical Summary | Summary of Care ---
Author Name Unknown Organization [facility] Address [address] [place] [facility] [place] [address] Phone [phone] Care Team Providers Care Input Output Clerk Name Role Phone Unavailable Primary Care Provider Unavailabl e Reason for Referral * Precert (Within 24 hrs (call dept; emergent)) - Pending Review Specialty Diagnoses / Procedures Referred By Billy sethi Referred To Contact Radiology Diagnoses Rupture of right Achilles tendon, initial encounter Procedures MRI ANKLE RIGHT WO CONTRAST Lucinda Mathew PA-C [address] [place] [phone] Referral ID Status Reason Start Date Expiration Date V isits Requested Visits Authorized [id number] Pending Review 11/27/2023 999 999 Reason for Visit * Reason Comments NEW PATIENT Ankle Encounter Details Date Type Department Care Team (Late st Contact Info) Description 11/27/2023 8:30 AM EDT Office Visit Orthopaedics [facility] [address] [place] [address] Lucinda Mathew PA-C [address] [place] [phone] Rupture of right Achilles tendon, initial encounter*; Ankle injury, right, initial encounter Allergies Active Allergy Reactions Criticality Noted Date Comments Bee Venom 11/27/2023 documented as of this encounter (statuses as of 11/27/2023) Medications No known medicationsdocumented as of this encounter (statuses as of 11/27/2023) Active Problems Problem Noted Date Diagnosed Date NONE 05/03/2010 documented as of this encounter (statuses as of 11/27/2023) Immunizations Name Administration Dates Next Due TDAP, [...] on file documented as of this encounter Progress Notes * Sharer, Lucinda Fernandez PA-C - 11/27/2023 8:49 AM EDT Montrell Han is a 33 year old male who presents for consultation to [facility] for right ankle injury/pain. History: Montrell Han states he felt a painful pop in the right Achilles while playing Frisbee. Patient localizes his pain along the distal Achilles. Notes associated swelling. Reports difficulty with ambulation and is requiring crutches. Denies any numbness or tingling. Review of systems: All others negative except those noted above in HPI. Review of patient's allergies indicates: Allergen Reactions Bee Venom No current outpatient medications on file. No current facility-administered medications for this visit. No past medical history on file. Patient Active Problem List Diagnosis NONE No past surgical history on file. Social History Socioeconomic History Marital status: Spouse name: Not on file Number of children: Not on file Years of education: Not on file Highest education level: Not on file Occupational History Occupation: student Employer: [employer] Comment: [employer] Tobacco Use Smoking status: Never Smokeless tobacco: Never Substance and Sexual Activity Alcohol use: Yes Comment: occasionally - twice a month - 4/time Drug use: No Sexual activity: Yes Partners: Female control/protection: Condom Comment: no history of STD's Other Topics Concern Not on file Social History Narrative Not on file Social Determinants of Health Financial Resource Strain: Not on file Food Insecurity: Not on file Transportation Needs: Not on file Social Connections: Unknown (11/04/2023) Social Connections How often do you feel lonely or isolated from those around you? (Adult - for ages 18 years and over): Not on file Housing Stability: Not on file Family History Problem Relation Name Age of Onset No Past Hx Mother No Past Hx Father No Past Hx Sister No Past Hx Brother Family History; none relevant to today's HPI Objective: Physical Exam There were no vitals filed for this visit. Estimated body mass index is 24.28 kg/m as calculated from the following: Height as of 05/03/10: 1.854 m (6' 1"). Weight as of 05/03/10: 83.5 kg (184 lb). General: generally well-nourished and in no acute distress HEENT: normocephalic, atraumatic, sclera anicteric. Psych: mood and affect normal , cooperative Resp: equal chest rise, non-tachypneic, non-labored breathing Neurovascular status/sensation: sensation intact in the common peroneal, tibial and saphenous nervedistributions. Toes well perfused with normal capillary refill MSK: Gait/station/stance: antalgic gait with use of crutches Ankle Exam Inspection: swelling along the distal achilles on the right. No ecchymosis. Skin intact. Palpation: Achilles tenderness with palpable defect about 2 cm from the achilles insertion ROM: Limited dorsiflexion and plantar flexion on the right with pain Strength: Dorsiflexion: L - 5/5, R - 4/5 Plantarflexion: L - 5/5, R - 4/5 Inversion: L - 5/5, R - 5/5 Eversion: L - 5/5, R - 5/5 Special Tests: Heel Cord tenderness: Positive on the right Homans test positive on the right Knee and pelvis exam: Normal ROM and No Deformity bilateral Radiology (I have personally reviewed the following films): X-rays of the right ankle reviewed withpatient. Those x-rays show no acute fracture dislocation. Assessment and Plan: Rupture of right Achilles tendon, initial encounter (Primary) - MRI ANKLE RIGHT WO CONTRAST; Future; Expected date: 11/27/2023 Ankle injury, right, initial encounter - XR ANKLE 3 OR MORE VIEWS Recommend boot with heel wedge. We will obtain MRI for further evaluation. Patient will follow up with Dr. Worrell after the MRI Lucinda Mathew PA-C [facility] Orthopa[facility]ics [facility] [address] [facility] [place] [id number] documented in this encounter Nursing Notes * Lea Bryant LPN - 11/27/2023 8:39 AM EDT Pt presents for new ortho urgent care visit, injury to R achilles area last evening. Was playing frisbee, changing the direction he was running, heard a pop, fell down. documented in this encounter Plan of Treatment Upcoming Encounters Date Type Department Care Team (Late st Contact Info) Description 11/27/2023 10:30 AM EDT Imaging Radiology [facility] 1st Floor, [place] [address] [facility] [place] [address] Rupture of right Achilles tendon, initial encounter 12/01/2023 11:45 AM EDT Office Visit Orthopaedics [facility] [address] [facility] [place] [address] Bridger Worrell MD [address] [facility] [place] [phone] Pending Results Name Type Priority Associated Diagnoses Date /Time XR ANKLE 3 OR MORE VIEWS Medical Imaging Routine Ankle injury, right, initial encounter 11/27/2023 8:54 AM EDT MRI ANKLE RIGHT WO CONTRAST Medical Imaging STAT Rupture of right Achilles tendon, initial encounter 11/27/2023 9:50 AM EDT Scheduled Orders Name Type Priority Associated Diagnoses Orde r Schedule MRI ANKLE RIGHT WO CONTRAST Medical Imaging STAT Rupture of right Achilles tendon, initial encounter Expected: 11/27/2023, Expires: 12/27/2024 Health Maintenance Due Date Last Done Comments Depression Screening 2002 HIV Screening 2005 Hepatitis C Screening 2008 COVID-19 Vaccine (4 2022-2 4 season) 2023 10/31/2020, 10/10/2020, 09/27/2020 Influenza Vaccine (FLU shot) (#1) 2024 DTaP,Tdap,and Td Vaccines (3 - Td or Tdap) 07/07/2029 07/07/2019, 03/19/2009 Hepatitis B Vaccine Completed 07/09/1994, 11/06/1993, 09/20/1993 HPV (Gardasil) Vaccine Aged Out No lo nger eligible based on patient's age to complete this topic MENINGOCOCCAL (MENACTRA/MENVEO) Aged Out No longer eligible b ased on patient's age to complete this topic Pneumococcal Vaccine: Pediatrics (0 to 5 Years) and At-Risk Patients (6 to 64 Years) Aged Out No longer eligible b ased on patient's age to complete this topic documented as of this encounter Medical Devices Not on filedocumented as of this encounter Visit Diagnoses Diagnosis Rupture of right Achilles tendon, initial encounter- Primary Ankle injury, right, initial encounter Rupture of right Achilles tendon, initial encounter documented in this encounter
--- OUTSIDE RECORDS SUMMARY | 2023-12-03 14:11 | External Medical Summary | Summary of Care ---
Author Name Unknown Organization [facility] Address [address] [place] [address] Phone [phone] Care Team Providers Care Shirt Operator Name Role Phone Unavailable Primary Care [...] EDT Office Visit Orthopaedics [facility] [address] [place] [address] Bridger Worrell MD [address] [place] [phone] Health Maintenance Due Date Last Done Comments [...]
--- OUTSIDE RECORDS SUMMARY | 2023-12-03 14:11 | External Medical Summary | Summary of Care ---
Author Name Unknown Organization [facility] Address [address] [place] [address] Phone [phone] Care Team Providers Care Fitness Studies Teacher Name Role Phone Unavailable Primary Care Provider [...] 12/01/2023 11:45 AM EDT Office Visit Orthopaedics [facility] [address] [place] [id number] Bridger Worrell MD [address] [place] [phone] Health Maintenance Due Date Last Done Comments [...]
--- NOTE | 2023-12-03 14:22 | Orthopedic Progress Note ---
Date of Service December 03, 2023 Orthopedic Progress Note Postop check in PACU status post Achilles tendon repair right lower extremity. Patient states he feels well but has some recurrent coughing and desaturates. Anesthesia feels like he has some negative Pulmonary pressure edema. At this point time they want to keep him for observation and admit him. Wound dressing clean dry and intact there is no pain but popliteal block is working well. Vital signs are stable he is afebrile. O2 sats with supporter in the 90s. This at 3 L. Assessment surgically doing well with the concern regarding negative pressure pulmonary edema and young healthy male. At this point I will just continue to observe. Medical consult has been requested. Will continue to follow. Begin DVT PE prophylaxis tomorrow.
--- NOTE | 2023-12-03 15:03 | Anesthesiology Progress Note ---
Date of Service December 03, 2023 Anesthesia Post Procedure Vital Signs Vital Signs: Temp Pulse Pulse Resp BP Pulse Ox O2 Del Method 12/03/23 14:45 82 20 144/87 H 94 Nasal Cannula 12/03/23 14:30 63 21 121/77 93 Nasal Cannula 12/03/23 14:15 70 18 112/74 94 Nasal Cannula 12/03/23 14:00 97.3 F L 67 22 120/79 93 Nasal Cannula 12/03/23 13:50 70 13 131/72 88 L Nasal Cannula 12/03/23 13:40 67 22 122/76 90 Nasal Cannula 12/03/23 13:30 71 14 114/77 85 L Room Air 12/03/23 13:20 97 H 13 119/79 88 L Room Air 12/03/23 13:10 79 15 129/79 93 Nasal Cannula 12/03/23 13:00 81 19 131/88 92 Nasal Cannula 12/03/23 12:50 93 H 24 124/91 95 Nasal Cannula 12/03/23 12:40 99 H 13 113/55 L 91 Non-rebreather 12/03/23 12:30 72 14 107/64 94 Non-rebreather 12/03/23 12:24 97.0 F L 75 11 L 109/67 66 L Oxymask 12/03/23 09:18 97.9 F 56 L 20 138/85 99 Room Air O2 Flow Rate 12/03/23 14:45 3 12/03/23 14:30 3 12/03/23 14:15 3 12/03/23 14:00 3 12/03/23 13:50 2 12/03/23 13:40 2 12/03/23 13:30 12/03/23 13:20 12/03/23 13:10 4 12/03/23 13:00 4 12/03/23 12:50 4 12/03/23 12:40 15 12/03/23 12:30 15 12/03/23 12:24 6 12/03/23 09:18 Pain Intensity Right Ankle: Pain Intensity: 1 Transfer of Care Handoff Completed per policy Notes Mental Status: alert / awake / arousable and participated in evaluation Patient Amnestic to Procedure: Yes Nausea / Vomiting: adequately controlled Pain: adequately controlled Airway Patency, RR, SpO2: see Notes below BP & HR: stable & adequate Hydration State: stable & adequate Anesthetic Complications: no major complications apparent and Pt Satisfied with anesthetic care Notes: I evaluated the patient in PACU. The patient had O2 saturations in the mid 80s on room air. He was coughing up pinkish sputum. I auscultated his lungs, and he had rales at the base of his lungs. I had him use an incentive spirometer with no improvement. The patient had to be placed on nasal cannula to keep his O2 saturation in the low 90s. I spoke to the patient about the likelihood of having developed negative pressure pulmonary edema. A chest X-ray was ordered. I spoke to Dr. Ashford, and I recommended the patient be admitted for further observation. I also spoke to the hospitalist about the patient's status.
[2023-12-03] MEDS: cefTRIAXone SODIUM 2,000 MG/50 ML BAG IV ONE (15:05)
[2023-12-03] MEDS ORDERED: EPINEPHrine INJ 1 MG/ML AMP IM PRN (15:09)
[2023-12-03] MEDS ORDERED: ACETAMINOPHEN 325 MG TAB PO PRN (15:09)
[2023-12-03] MEDS: KETOROLAC 30 MG/ML VIAL IV PRN (17:28)
[2023-12-03] MEDS: oxyCODONE/ACETAMINOPHEN 5mg/325mg TAB PO PRN (21:20)
--- NOTE | 2023-12-04 06:32 | Orthopedic Progress Note ---
Date of Service December 04, 2023 Assessment & Plan Admission and Anticipated Discharge Date Admission Date: December 03, 2023 Orthopedic Progress Note Postop day #1 status post right Achilles tendon repair has anesthesia issue related to negative pressure pulmonary edema. Was placed on 23-hour observation overnight. At this point time he feels like he is doing well denies any chest pain shortness of breath fever chills nausea vomiting or headache. Vital signs are stable he is afebrile. Neurovascular check is still limited by the block. Temperature is 37 1. Wound dressing clean dry and intact. Incentive spirometer he is working well. Assessment overall doing well suggest discharge to home today keep present orthopedic plan in place. Follow-up in the office in 2 weeks. Start Eliquis today. Loading dose 5 mg ordered this morning. Adjusted pain medications placed on Tylenol 1000 mg p.o. every 8 hours [id number] and use oxycodone without Tylenol for pain breakthrough. Can also use as needed Motrin.
[2023-12-04] MEDS: ACETAMINOPHEN 500 MG TAB PO PRN (06:47)
[2023-12-04 07:54] LABS: Basophils # (auto) 0.04 K/uL (0.00-0.20); Basophils % (auto) 0.3 %; Eosinophils % (auto) 1.6 %; Hematocrit (blood only) 39.9 % (42.0-52.0); Hemoglobin 14.3 g/dl (14.0-18.0); Immature Granulocytes # (auto) 0.05 K/uL (0.01-0.20); Immature Granulocytes % (auto) 0.4 %; Lymphocytes # (auto) 2.47 K/uL (1.20-3.40); Lymphocytes % (auto) 19.7 %; Mean Corpuscular Hemoglobin 32.6 pg (25.0-34.0); Mean Corpuscular Hgb Conc 35.8 g/dL (32.0-36.0); Mean Corpuscular Volume 91.1 fL (80.0-100.0); Mean Platelet Volume 10.1 fL (9.4-12.4); Monocytes # (auto) 1.23 K/uL (0.11-0.59); Monocytes % (auto) 9.8 %; Neutrophils # (auto) 8.52 K/uL (1.40-6.50); Neutrophils % (auto) 68.2 %; Platelet Count 271 K/uL (130-400); RDW Coefficient of Variation 10.6 % (11.5-14.5); RDW Standard Deviation 35.4 fL (36.4-46.3); Red Blood Count 4.38 M/uL (4.70-6.10); White Blood Count 12.51 K/ul (4.8-10.8)
[2023-12-04 08:24] LABS: BUN Creatinine Ratio 19.1 (10-20); Calcium 8.9 mg/dl (8.6-10.3); Creatinine Clr Calc Pharmacy 129.6 ml/min; Est GFR (African American) 130.2 ml/min; Est GFR (Non-African American) 112.3 ml/min; Potassium 3.7 mmol/L (3.5-5.1)
[2023-12-04] MEDS: oxyCODONE HCL IR 5 MG TAB (IMMEDIATE RELEASE) PO PRN (08:46)
[2023-12-04] MEDS: APIXABAN 5 MG TABLET PO SCH (08:48)
--- NOTE | 2023-12-04 08:58 | Hospitalist Progress Note ---
Date of Service December 04, 2023 Assessment & Plan (1) Postoperative hypoxemia: Plan: Consulted for Post-Op Hypoxia, suspected negative pressure pulmonary edema - Postoperatively, patient required supplemental oxygen at 3 L and had associated cough with pink/blood-tinged sputum. - Patient denies preceding fever, chills, cough, sinus congestion or other symptoms to suggest infectious etiology. - Patient clinically improved with supplemental O2 and incentive spirometer. No indication or need for diuretics or steroids. - Complete symptom resolution in a.m. 12/03. 95% on room air, asymptomatic. - Continue incentive spirometer upon discharge. (2) Rupture Achilles tendon: Plan: Status post right Achilles tendon repair with Dr. Ashford on 12/03/2023. - Offloading of the right heel at all times, when laying in bed must have pillow underneath his right Achilles/heel at all times. - Defer activity level, pain management, antibiotics, and follow-up appointments to surgical team. - Patient did have mild hemoptysis in PACU, however this has resolved. > OK to start Eliquis as DVT PPx today, 12/03. - Agree with pain regiment as documented in Ortho note: Tylenol 1000 mg p.o. every 8 hours, oxycodone as needed for breakthrough pain. Plan Patient is medically stable for discharge from hospital medicine's perspective. Medicine will sign off at this time. Please reach out with any questions or concerns. Follow-up with orthopedics as scheduled. CODE STATUS: Full code VTE PPx: Eliquis Admission and Anticipated Discharge Date Admission Date: December 03, 2023 Subjective Patient seen and evaluated at bedside. He reports that he is feeling well and ready to go home. He is stable on room air. Denies any shortness of breath, difficulty breathing, chest pain, fever, chills, cough, hemoptysis, lightheadedness, or dizziness. He reports that his pain is well-controlled at this time. He notes that he has been consistently using his incentive spirometer and has no questions about how to use it. We discussed reasons to return to the hospital including fever greater than 100.4 F, dyspnea, chest pain, hemoptysis, or passing out. Patient is medically stable for discharge from medicine's perspective. Physical Exam Physical Exam: General: No acute distress, nondiaphoretic, well-developed, well-nourished. Skin: The skin was without rashes, erythema, edema, or bruising. Right lower extremity in postop wrap. Neurovascular check limited by nerve block. Cardiac: Regular rate and rhythm without murmurs gallops or rubs. Pulm: Clear to auscultation bilaterally without wheezes, rales or rhonchi. No respiratory distress. 95% on room air. Abdominal: Soft, nontender, nondistended. Bowel sounds present. Neuro: A&O x3. No focal neurological deficits. Results & Data Results & Data Vital Signs (Past 12 Hours) Vital Signs Temp Pulse Pulse Pulse Resp BP BP 12/04/23 07:37 45 L 12/04/23 07:27 36.6 C 52 L 18 132/69 12/04/23 02:43 74 12/04/23 02:42 37.1 C 63 18 115/59 L 12/03/23 23:20 36.6 C 77 18 122/62 12/03/23 22:01 Pulse Ox O2 Del Method O2 Flow Rate 12/04/23 07:37 12/04/23 07:27 95 Room Air 12/04/23 02:43 12/04/23 02:42 94 Room Air 12/03/23 23:20 97 Room Air 12/03/23 22:01 Nasal Cannula 1 Laboratory Results Reviewed CBC Reviewed BMP Diagnostic Findings Laboratory Results WBC 12.51 K/ul (4.8-10.8) H 12/04/23 07:28 RBC 4.38 M/uL (4.70-6.10) L 12/04/23 07:28 Hgb 14.3 g/dl (14.0-18.0) 12/04/23 07:28 Hct 39.9 % (42.0-52.0) L 12/04/23 07:28 MCV 91.1 fL (80.0-100.0) 12/04/23 07:28 MCH 32.6 pg (25.0-34.0) 12/04/23 07: MCHC 35.8 g/dL (32.0-36.0) 12/04/23 07: RDW Std Deviation 35.4 fL (36.4-46.3) L 12/04/23 07:28 RDW Coeff of Adriana 10.6 % (11.5-14.5) L 12/04/23 07:28 Plt Count 271 K/uL (130-400) 12/04/23 07:28 MPV 10.1 fL (9.4-12.4) 12/04/23 07: Immature Gran % (Auto) 0.4 % 12/04/23 07: Neut % (Auto) 68.2 % 12/04/23 07: Lymph % (Auto) 19.7 % 12/04/23 07:28 [place] % (Auto) 9.8 % 12/04/23 07:28 Eos % (Auto) 1.6 % 12/04/23 07:28 Baso % (Auto) 0.3 % 12/04/23 07: Neut # (Auto) 8.52 K/uL (1.40-6.50) H 12/04/23 07:28 Lymph # (Auto) 2.47 K/uL (1.20-3.40) 12/04/23 07: [place] # (Auto) 1.23 K/uL (0.11-0.59) H 12/04/23 07:28 Eos # (Auto) 0.20 K/uL (0.00-0.50) 12/04/23 07: Baso # (Auto) 0.04 K/uL (0.00-0.20) 12/04/23 07: Immature Gran # (Auto) 0.05 K/uL (0.01-0.20) 12/04/23 07: Sodium 138 mmol/L (136-145) 12/04/23 07: Potassium 3.7 mmol/L (3.5-5.1) 12/04/23 07: Chloride 107 mmol/L (98-107) 12/04/23 07: Carbon Dioxide 25 mmol/L (21-32) 12/04/23 07:28 Anion Gap 6 (3-11) 12/04/23 07:28 BUN 17 mg/dl (6-23) 12/04/23 07: Creatinine 0.89 mg/dl (0.6-1.4) 12/04/23 07:28 Est Cr Clr Drug Dosing 129.6 ml/min 12/04/23 07:28 Est GFR ( Amer) 130.2 ml/min 12/04/23 07:28 Est GFR (Non-Af Amer) 112.3 ml/min 12/04/23 07:28 BUN/Creatinine Ratio 19.1 (10-20) 12/04/23 07:28 Glucose 97 mg/dl (70-99(Fasting)) 12/04/23 07:28 Calcium 8.9 mg/dl (8.6-10.3) 12/04/23 07:28 Impressions Chest X-Ray 12/03/23 13:47 XR chest 1V portable CLINICAL HISTORY: hypoxia TECHNIQUE: Single frontal radiograph of the chest was obtained. Comparison: None available at the time of this dictation. FINDINGS: No lines and tubes are seen. The cardiomediastinal silhouette is normal. Peribronchial thickening is seen. No evidence of pleural effusion or pneumothorax. IMPRESSION: Peribronchial thickening is seen compatible with infectious/inflammatory airways disease or viral pneumonia. No giovanny consolidation is seen. ACT 112: Negative or not required by law. Electronically signed by: Jeremy Merrill M.D. 12/03/2023 2:08 PM PG Care Time/CCT Total # of Minutes Spent Total Time Spent with Patient: Total time spent is greater than 50% in coordination of care (as documented) at patient's floor/unit and/or counseling patient: Coding Level of Care Code 35344 SUB INP/OBS CARE 2/35MIN Diagnoses Postoperative hypoxemia R09.02; Z98.890 Rupture Achilles tendon S86.019A
--- NOTE | 2023-12-04 09:10 | Orthopedic Progress Note ---
Date of Service December 04, 2023 Assessment & Plan (1) S/P Achilles tendon repair: Plan: The patient was educated regarding today's findings. Continue nonweightbearing status on the right leg. Continue with ice and elevation of the leg to reduce pain and swelling. Keep the splint on and dry at all times. He will use his crutches for ambulation. He received his first dose of Eliquis this morning. Continue twice daily for a week and then transition to aspirin 325 mg twice daily for 3 more weeks. Prescription for oxycodone will will be sent to his pharmacy. He will use Tylenol 1000 mg every 8 hours [id number] and supplement with the oxycodone as needed. Follow-up in the office in 2 weeks as scheduled for suture removal and then physical therapy. Admission and Anticipated Discharge Date Admission Date: December 03, 2023 Subjective This 33-year-old male is seen today in his room. He is 1 day status post right Achilles tendon primary repair. He has just finished breakfast. He states he is feeling well. He denies any significant pain in the right Achilles. He states he has had no further coughing since 7 PM last evening. There has been no blood-tinged or pink sputum. He states he is breathing fine. He desires to go home. No other complaints. Review of Systems Review of Systems: Unchanged from yesterday. Physical Exam Physical Exam: General: Well-developed, well-nourished, young male, in no acute distress. Laying in bed. Alert and oriented. Skin: Warm and dry with good turgor. He has a post surgical splint in place on the right lower leg. It was left in place. He has good capillary refill to his toes. Musculoskeletal: The patient has intact motor function of his knee and his toes. He is able to flex and extend as well as separate them at this point. Neurologic: Gross sensation is intact across each of the digits of the right foot by soft touch. He noticed this was different than the previous exam earlier this morning. Results & Data Vital Signs (Past 12 Hours) Vital Signs Temp Pulse Pulse Pulse Resp BP BP 12/04/23 07:37 45 L 12/04/23 07:27 36.6 C 52 L 18 132/69 12/04/23 02:43 74 12/04/23 02:42 37.1 C 63 18 115/59 L 12/03/23 23:20 36.6 C 77 18 122/62 12/03/23 22:01 Pulse Ox O2 Del Method O2 Flow Rate 12/04/23 07:37 12/04/23 07:27 95 Room Air 12/04/23 02:43 12/04/23 02:42 94 Room Air 12/03/23 23:20 97 Room Air 12/03/23 22:01 Nasal Cannula 1 Laboratory Results CBC obtained this morning shows a white count of 12.5. H&H of 14.3 and 39.9. Platelets 271,000. PRP shows unremarkable electrolytes. BUN of 17 with creatinine 0.89. Glucose this morning is 97.
--- NOTE | 2023-12-04 09:41 | Discharge Summary ---
Date of Service December 04, 2023 Admission HPI Per Admitting Provider Gene is a 33-year-old male with past medical history of bee venom anaphylaxis who is otherwise healthy who presented for operative repair of a right Achilles tendon rupture sustained while playing sports. Underwent right Achilles tendon repair 12/03/2023. Patient is recommended for overnight observation and monitoring due to hypoxia suspected to be due to negative pressure pulmonary edema. No aspiration event. Seen at the bedside in the PACU. He reports he remembers trying to take a deep breath against resistance when waking up. Since then he has had a cough with light pink sputum production. Currently has no chest pain, chest pressure, lightheadedness, dizziness. Does not feel short of breath on oxygen. He denies any history of lung problems in the past. No history of asthma. No cardiac disease. No family history of lung disease. No history of blood clots, no history of bleeding. He reports he is very active and was playing [employer] when he tore his right Achilles which was repaired today. He is not short of breath at bedside. He reports he does not drink alcohol regularly, no tobacco use. 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 No additional questions or concerns at bedside. Full code. Principal Diagnosis Negative pressure pulonary edema s/p Achilles tendon repair R lower extermity. Discharge Data Allergies Allergy/AdvReac Type Severity Reaction Status Date / Time bee venom protein (honey bee) Allergy Severe Anaphylaxis Verified 12/03/23 09:16 Vaccinations none Consultations 12/03/23 14:03 Consult Hospitalist Stat Procedures Performed Operation Date: 12/03/23 10:40 Actual Procedures p Right Achilles Tendon Repair(Right) - Timbo Ashford MD Ordered Studies 12/03/23 10:53 US - OR guided needle placemen Routine Hospital Course (1) Rupture Achilles tendon: (2) Postoperative hypoxemia: continue post op achilles tendon protocol Total Time Total Time Spent Total Time Spent (In Minutes): 5 Discharge Plan Discharge Items Reason For Visit: Right Achilles Tendon Rupture Discharge Diagnosis: Right achilles same Condition on Discharge: Good Activity: Per Instructions section Lifting: Wait until after follow-up appointment Bathing Comment: keep wound clean and dry Sexual Activity: When tolerated Exercise/Sports: Wait until after follow-up appointment Call non-emergency contact if: you have any medication questions, your pain is not controlled, your temperature is above 101.5, your wound has increased redness, your wound has increased drainage and your wound pain has increased Follow-up/Referrals: Doug Ruiz MD [Primary Care Provider] - Timbo Ashford MD [Surgeon] - 12/15/23 11:30 am (PT to follow at 1200) Addtl Attending Provider Instructions: DIET: * Resume previous diet. MEDICATIONS: * Please take your prescriptions as instructed at your pre-op appointment and/or see medication discharge instructions listed above. * If concerns develop, call your physician's office at . SPECIAL CARE INSTRUCTIONS: * Ice/Elevate as instructed. * Keep dressing clean, dry, intact. * Your surgical extremity may be discolored due to prepping agents used on the skin. A bluish-green tint is a normal variant and should not cause alarm. Call your doctor at [phone] if: * Temperature above 101 degrees * Pain not relieved by pain medicine ordered * There is increased drainage or redness from any incision * You have any unanswered questions, problems or concerns. FOLLOW UP VISIT: * If not already scheduled, please call the office at to schedule a follow-up appointment. ice and elevate the leg frequently to reduce pain/swelling keep the splint on and dry at all times start your antibiotic tonight with dinner Use your crutches-do not put weight on the right leg follow up in the office in 2 weeks as scheduled Pending Studies at Discharge: No Stand-Alone Forms: My [facility] Medications and DC Order Prescriptions: Continued ascorbic acid (vitamin C) [Vitamin C] 500 mg Tablet 500 mg PO 3XWK epinephrine 0.3 mg/0.3 mL Auto-Injector 0.3 mg IM Q4H PRN (Reason: Anaphylaxis) Admission Data Admit Date/Time: 12/03/23 14:28 Attending Provider: Timbo Ashford Admit Provider: Timbo Ashford Primary Care Provider: Doug Ruiz Other Providers: Davy Leonardo
--- OUTSIDE RECORDS SUMMARY | 2023-12-04 17:47 | External Medical Summary | Summary of Care ---
Author Name Unknown Organization [facility] Address [address] [place] [address] Phone [phone] Care Team Providers Care Manager Statistics Name Role Phone Unavailable Primary Care Provider Unavailabl e Encounter Details Date Type Department Care Team (Late st Contact Info) Description 12/02/2023 Telephone Orthopaedics [facility] [address] [place] [id number] Bridger Worrell MD [address] [place] [phone] Allergies Active Allergy Reactions Criticality Noted Date Comments Bee Venom 11/27/2023 documented as of this encounter (statuses as of 12/03/2023) Medications No known medicationsdocumented as of this encounter (statuses as of 12/03/2023) Active Problems Problem Noted Date Diagnosed Date Achilles rupture, right 12/01/2023 NONE 05/03/2010 documented as of this encounter (statuses as of 12/03/2023) Immunizations Name Administration Dates Next Due TDAP, [...] encounter Miscellaneous Notes * Telephone Encounter - Alesha Marr OSA - 12/03/2023 4:16 PM EDT Kaya called in to cx return appt's and the sx that is scheduled. Pt is getting it done somewhere else. Please take of the schedule. Thank you Alesha * Telephone Encounter - Susana Mahajan OSA [...] Encounter OR [facility], Operating Room [facility] [address] [place] [phone] Bridger Worrell MD [address] [place] [phone] 12/09/2023 1:39 PM EDT - 12/09/2023 3:33 PM EDT Surgery OR [facility], Operating Room [facility] [address] [place] [phone] Bridger Worrell MD [address] [place] [phone] REPAIR ACHILLES TENDON Scheduled Procedures Name Priority Associated Diagnoses Date/Ti [...]
== END 2023-12-04 10:14 | disposition home or self-care (01) ==
LOC: ASU 08:50 → PACUINP 08:50 → 2W 16:00